=== PATIENT | female | born 1995 | race Caucasian/White ===

== ENCOUNTER 2022-04-13 03:22 | Emergency (ER) | payer MEDICAID ==
[~2022-04-13] VITALS: Ht 167.6 cm; Wt 60.0 kg
[2022-04-13] MEDS ORDERED: normal saline 1000ML IV soln IVB ONE (04:00)
[2022-04-13 04:10] LABS: BASOPHILS % (AUTO) 0.6 % (0-1); EOSINOPHILS # (AUTO) 0.1 X10'3 (0-0.9); EOSINOPHILS % (AUTO) 1.7 % (0-6); HEMATOCRIT 39.2 % (35.0-45.0); HEMOGLOBIN 13.4 g/dl (12.0-16.0); LYMPHOCYTES # (AUTO) 2.8 X10'3 (1.1-4.8); LYMPHOCYTES % (AUTO) 33.4 % (21-51); MEAN CORPUSCULAR HEMOGLOBIN 29.9 PG (27.0-31.0); MEAN CORPUSCULAR VOLUME 87.8 FL (78-98); MEAN PLATELET VOLUME 8.3 FL (7.4-10.4); MONOCYTES # (AUTO) 0.6 X10'3 (0-0.9); MONOCYTES % (AUTO) 6.7 % (2-12); NEUTROPHILS # (AUTO) 4.8 X10'3 (1.8-7.7); NEUTROPHILS % (AUTO) 57.6 % (42-75); PLATELET COUNT 262 X10'3 (140-440); RED BLOOD COUNT 4.47 X10'6 (4.20-5.60); RED CELL DISTRIBUTION WIDTH 12.7 % (11.5-14.5); WHITE BLOOD COUNT 8.4 X10'3 (4.5-11.0)
[2022-04-13 04:42] LABS: OSMOLALITY 292 MOSM/K (280-300)
[2022-04-13 04:52] LABS: ALANINE AMINOTRANSFERASE 37 U/L (12-78); ALBUMIN/GLOBULIN RATIO 1.3 (1.1-1.5); ALKALINE PHOSPHATASE 66 IU/L (46-116); ANION GAP 12 (8-16); ASPARTATE AMINO TRANSFERASE 32 U/L (10-37); BILIRUBIN,TOTAL 0.2 MG/DL (0.1-1.0); BLOOD UREA NITROGEN 24 MG/DL (7-18); BUN/CREATININE RATIO 18.2 (6.6-38.0); CALCIUM 9.3 MG/DL (8.5-10.1); CHLORIDE 102 MMOL/L (99-107); CREATININE 1.32 MG/DL (0.40-0.90); ETHANOL < 0.010 GM/DL (0.0-0.010); GLUCOSE 112 MG/DL (70-104); POTASSIUM 3.6 MMOL/L (3.5-5.1); SODIUM 138 MMOL/L (135-145); TOTAL CARBON DIOXIDE 23.9 MMOL/L (24-32); TOTAL PROTEIN 7.1 G/DL (6.4-8.2); eGFR 48 ML/MIN
[2022-04-13 04:55] LABS: ACETAMINOPHEN < 2.0 UG/ML (10-30)
--- NOTE | 2022-04-13 05:14 | NUR ---
POISON CONTROL CONTACTED. 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
--- NOTE | 2022-04-13 05:38 | NUR ---
Took out the patient's IV and explained to the boyfriend about a 1798 and that she was going to overflow. He stated "why, she didn't even take anything." Informed him, that is fine, but she is on a 1798, and will be evaluated by Mental Health. He made comments "My brother (or someone) comes here all the time saying he wants to kill himself and he has schizophrenia, and he is just in and out of here just like that and no one does anything." As I was getting the w/c he said to her "I hope they don't take your organs: your heart and lungs and stuff." I asked him why he would say something like that to her, that that would never happen. He claims it does. I informed him to say nery and he just stood there, started to wheel her in the wheelchair and he said "Can you hold on a minute, I want to kiss my fiance good bye" As I was pushing her w/c he said "I hope they take better care of her than you did you bitch!"\\ Informed him he can leave. He continued to belittle me. "You can't even push a fucking wheelchair." [employer] Sharon Medellin LPN to not allow him back His name is Crow Salazar
[2022-04-13 05:43] LABS: CLARITY,URINE CLEAR (Clear); COLOR,URINE YELLOW (Yellow); GLUCOSE, URINE NEGATIVE (Neg); KETONES,URINE NEGATIVE (Neg); LEUKOCYTE ESTERASE ,URINE NEGATIVE (Neg); NITRITES, URINE NEGATIVE (Neg); OCCULT BLOOD,URINE NEGATIVE (Neg); PROTEIN,URINE NEGATIVE (Neg); UROBILINOGEN,URINE 0.2 E.U/dL (0.2-1.0)
--- NOTE | 2022-04-13 05:45 | NUR ---
PT BOYFRIEND (GLORIA SOTO) IS DISRUPTIVE TO PT WELLBEING. IT IS NOT RECOMMENDED THAT HE IS ALLOWED TO VISIT PT DURING HER STAY HE MAKES HER AGITATED AND PARANOID ABOUT HER OVERALL HEALTH AND SAFETY. PT IS REASSURED THAT SHE IS SAFE, AND THAT NO HARM WILL COME TO HER. WILL CONTINUE TO MONITOR PT. Addendum: 04/13/22 at 0555 by MAHESHAL Amendment undone in EDM - 04/13/22 at 0555 by ADUVAL PT BOYFRIEND (GLROIA KABA) IS DISRUPTIVE TO PT WELLBEING. IT IS NOT RECOMMENDED THAT HE IS ALLOWED TO VISIT PT DURING HER STAY HE MAKES HER AGITATED AND PARANOID ABOUT HER OVERALL HEALTH AND SAFETY. PT IS REASSURED THAT SHE IS SAFE, AND THAT NO HARM WILL COME TO HER. WILL CONTINUE TO MONITOR PT. Addendum: 04/13/22 at 0555 by ADUVAL PT BOYFRIEND (GLORIA HURST) IS DISRUPTIVE TO PT WELLBEING. IT IS NOT RECOMMENDED THAT HE IS ALLOWED TO VISIT PT DURING HER STAY HE MAKES HER AGITATED AND PARANOID ABOUT HER OVERALL HEALTH AND SAFETY. PT IS REASSURED THAT SHE IS SAFE, AND THAT NO HARM WILL COME TO HER. WILL CONTINUE TO MONITOR PT.
[2022-04-13 05:55] LABS: URINE HCG NEGATIVE (NEG)
[2022-04-13 05:56] LABS: URINE AMPHETAMINE SCREEN NEGATIVE (Neg); URINE BARBITUATE SCREEN NEGATIVE (Neg); URINE BENZODIAZEPINES SCREEN POSITIVE (Neg); URINE CANNABINOID SCREEN NEGATIVE (Neg); URINE COCAINE SCREEN NEGATIVE (Neg); URINE METHADONE SCREEN NEGATIVE (Neg); URINE OPIATE SCREEN POSITIVE (Neg); URINE PHENCYCLIDINE SCREEN NEGATIVE (Neg)
[2022-04-13 06:10] LABS: UA COLLECTION TYPE CLN CATCH MIDSTREAM
--- NOTE | 2022-04-13 06:38 | NUR ---
CONNIE SENTpt packet to [facility]
--- NOTE | 2022-04-13 07:26 | NUR ---
TECH INVENTORIED PT BELONGINGS AND PLACED THEM IN CORRESPONDING LOCKER TO ROOM NUMBER, NO VALUABLES FOUND IN BAG, TECH WILL ASK PT WHEN THEY WAKE UP IF THEY HAVE ANY.
--- NOTE | 2022-04-13 13:12 | NUR ---
Mom called and "nephew" called and wanting to know visiting hours. Informed pt is still sleeping and not having visitors at this time.
--- NOTE | 2022-04-13 13:13 | NUR ---
Poison control called to check on patient. Informed pt is sleeping and arousable. VS are soft BP but not unexpected.
--- NOTE | 2022-04-13 15:01 | NUR ---
Pt woke up and needed to go the restroom. Pt unsteady on her feet. Taken to the BR in W/C and assisted to toilet. Pt taken back to bed. Requested to call her fiance.
--- NOTE | 2022-04-13 15:35 | NUR ---
Mom Gale called, karen notified pt was with Mental Health Clinician, pt mother requested to leave their phone number, . Karen told her that she would notify pt that she called.
--- NOTE | 2022-04-13 17:32 | NUR ---
Sj called and wanted TSH results on pt. Faxed over
--- NOTE | 2022-04-13 19:40 | NUR ---
Sj chiang accepted to transfer in morning Lee accepted at 1730
--- NOTE | 2022-04-13 21:22 | NUR ---
pt stated the she took pills to kill herself and suprised she did not , pt states she no longer wants to kill herself and wants to go home, pt advised that she will have to stay here and will be going to inpatient tommorow for help with her depression and thoughts of SI, pt states that she wants help but has not had the resorces that she needs to get help.
--- NOTE | 2022-04-13 23:00 | NUR ---
breaking primary rn for lunch, patient is lying on left side in bed covers on eyes closed rr even un labored no observable s/s of acute stress at this time
--- NOTE | 2022-04-14 06:59 | NUR ---
Pt lying quietly on left side, rr even and unlabored. No observable s/s of acute distress.
--- NOTE | 2022-04-14 09:00 | NUR ---
One to one with patient to assess sucidal thought process. Pt was resting comfortably watching T.V upon greeting. Pt presents with a constricted affect, immediately asking "When do I get to go home." "I don't want to hurt myself." Pt denies SI/HI/A/VH. Pt states "All I have is ADHD and I need medication." Pt becomes tearful "I just want to go home." Pt reports she has been in [place] for about 6 months and has yet to establish with a PCP. "I think it is my hormones, I am never this up and down (meaning her emotions.)" Trailer Driver reinforced the seriousness of her SA. Pt minimizes the attempt. Pt again states "I want to go home." Where is home? "With my fiance." I thought he broke up with you. Pt shakes her head "no." "He is waiting for me to come home." Trailer Driver explained she was on a 72 hour hold and she was accepted to [facility]. Pt continues to ask if her finance can come visit her there. Will forward notes to [facility]. Pt states she has no other [facility] admissions.
--- NOTE | 2022-04-14 10:00 | NUR ---
Pt on phone talking with "curtis." Pt wanting him to come and visit, radio script writer explained they could talk on phone, but he wasn't allowed to come in r/t to being disruptive at admit. Pt stated "he was just upset after watching them put that IV in me." "He thought I was going to ." Pt seemed to take information okay.
--- NOTE | 2022-04-14 11:25 | NUR ---
Pt resting comfortably with blankets pulled over her head. Visible respirations noted, with out distress.
--- NOTE | 2022-04-14 13:22 | NUR ---
patient given belongings to change back into, no valuables were placed into the safe.
--- NOTE | 2022-04-14 17:07 | NUR ---
Pt was transferred to [facility] and left unit at 1323. Pt left with all personal belongings and original 5150 was given to [facility] tow driver. Pt was A&O x4.
[2022-04-14 17:08] VITALS: BP 95/56
== END 2022-04-14 13:23 ==
LOC: ER 03:23 → EEVIPCON 03:23 → ER 04-14 13:23
DX: T42.4X2A Poisoning by benzodiazepines, intentional self-harm, initial encounter (principal); Z20.822 Contact with and (suspected) exposure to COVID-19; R45.851 Suicidal ideations; Y92.89 Other specified places as the place of occurrence of the external cause
CPT/HCPCS: 36415; 80053; 80305; 80320; 80329; 81003; 81025; 83930; 84443; 85025; 87811; 96360; 99285; C2617; J7030